=== PATIENT | male | born 1935 | race Caucasian/White ===

== ENCOUNTER 2017-08-18 16:14 | Emergency (ER) | payer MEDICARE, OTHER ==
[~2017-08-18] VITALS: Ht 180.3 cm; Wt 93.0 kg
--- NOTE | 2017-08-18 16:34 | NUR ---
A/OX4, C/O EAD LACERATION S/P FALL AFTER MISSING A STEP IN THE LADDER. NO KO. VSS NAD RR EVEN AN DUNLABORED. SEEN BY DR ECHAVARRIA
[2017-08-18] MEDS ORDERED: LIDOCAINE MPF 1%-EPI 1:200,000 30 ML VIAL IJ ONE (16:40)
[2017-08-18] MEDS ORDERED: LIDOCAINE 1%-EPI 1:100,000 20 ML VIAL TP ONE (17:00)
[2017-08-18] MEDS ORDERED: TDAP [DIPH/PERTUSSIS/TET] 0.5 ML VIAL IM ONE ×2 (17:00→17:03)
[2017-08-18] MEDS ORDERED: LIDOCAINE 1% INJ 50 ML MDV IJ ONE (17:03)
--- NOTE | 2017-08-18 17:16 | NUR ---
PER PATIENT HIS TDAP IS UPDATED-- 6 MOS AGO
[2017-08-18 18:24] VITALS: BP 150/80
--- NOTE | 2017-08-18 18:24 | NUR ---
Patient discharged to home in stable condition. Written and verbal after care instructions given. Patient verbalizes understanding of instruction.
== END 2017-08-18 18:25 | disposition home or self-care (01) ==
LOC: ER 16:18
DX: S01.01XA Laceration without foreign body of scalp, initial encounter (principal); G89.29 Other chronic pain; I10 Essential (primary) hypertension; M48.02 Spinal stenosis, cervical region; M50.21 Other cervical disc displacement, high cervical region; M54.5 Low back pain; M50.222 Other cervical disc displacement at C5-C6 level; Z98.890 Other specified postprocedural states; Z88.0 Allergy status to penicillin; W10.8XXA Fall (on) (from) other stairs and steps, initial encounter; Y93.39 Activity, other involving climbing, rappelling and jumping off; Y92.89 Other specified places as the place of occurrence of the external cause; Y99.8 Other external cause status
CPT/HCPCS: 12002; 70450; 72125; 90715; 99284; A4606; A6402; J3490 ×2; Z7610

== ENCOUNTER 2017-08-28 12:49 | Emergency (ER) | payer MEDICARE, OTHER ==
[~2017-08-28] VITALS: Ht 180.3 cm; Wt 92.1 kg
[2017-08-28 12:49] VITALS: BP 169/43
== END 2017-08-28 13:01 | disposition home or self-care (01) ==
LOC: ER 12:51
DX: S01.01XD Laceration without foreign body of scalp, subsequent encounter (principal); Z48.02 Encounter for removal of sutures; I10 Essential (primary) hypertension; M54.5 Low back pain; G89.29 Other chronic pain; Z88.0 Allergy status to penicillin; W11.XXXD Fall on and from ladder, subsequent encounter
CPT/HCPCS: 99281; A4606; Z7502; Z7610